=== PATIENT | female | born 1980 | race African-American/Black ===

== ENCOUNTER → 2021-03-17 | Outpatient (CLI) | payer OTHER, SELFPAY | END | disposition home or self-care (01) | LOC: LABSPEC 08:17 | PROVIDERS: PCP Internal Medicine; Referring Provider Physician Assistant; Visit Provider Physician Assistant | DX: L08.9 Local infection of the skin and subcutaneous tissue, unspecified (principal); L02.415 Cutaneous abscess of right lower limb | CPT/HCPCS: 87070; 87205 ==

== ENCOUNTER 2021-11-23 14:05 | Emergency (ER) | payer OTHER, SELFPAY ==
[2021-11-23 14:06] VITALS: BP 139/89; PULSE 90; RESP 16; TEMP 36.2; O2SAT 98; BMI 25.1
--- NOTE | 2021-11-23 14:25 | EX.ED.UPPERE ---
HPI History of Present Illness HPI Narrative: Patient presents with a laceration to her left hand that occurred today. Patient states she was cutting an avocado and went to stab the pit. Patient states she missed and the knife went into her left hand. Patient describes her pain as dull. Patient states nothing makes it better nothing makes it worse. Patient admits to some tingling in her left index and middle fingers. Patient denies any weakness. Patient is unsure of her last tetanus. Patient denies any other injuries. Chief Complaint: Laceration Informant: patient Onset/Context/Timing Onset: Today Context: Sudden Onset Timing: Continuous Quality of Pain: Dull Location: Left hand Worsened by: Nothing Relieved by: Nothing Associated Symptoms Associated Symptoms: Positive for Parasthesia; Negative for Weakness and Loss of Funtion Narrative Tetanus Immunization: Unknown [facility] Medical History ADHD (attention deficit hyperactivity disorder) Medical History no medical history Home Medications apremilast [Otezla] 30 mg PO DAILY 11/23/21 [History Last Taken Unknown] dextroamphetamine-amphetamine 20 mg PO DAILY 11/23/21 [History Last Taken Unknown] ergocalciferol (vitamin D2) [Vitamin D2] 1,250 mcg PO QWEEK 11/23/21 [History Last Taken Unknown] Allergy/AdvReac Type Severity Reaction Status Date / Time No Known Allergies Allergy Verified 11/23/21 14:07 Family History no significant family his Surgical History no surgical history no surgical history Social History Smoking Status: Former smoker ROS ROS ED Constitutional Constitutional ED: Denies chills or fever(s) Eyes Eyes: Denies blurry vision or change in vision ENT ENT ED: Denies rhinorrhea or sore throat Cardiovascular Cardiovascular: Denies chest pain or palpitations Respiratory/Chest Respiratory/Chest: Denies cough or dyspnea Gastrointestinal Gastrointestinal: Denies nausea or vomiting Genitourinary Genitourinary ED: Denies dysuria or hematuria Musculoskeletal Musculoskeletal: Denies back pain or neck pain Integumentary Denies abscess or rash Neurologic Neurologic: Denies headache(s) or weakness Allergic/Immunologic Allergic/Immunologic ED: Denies mouth swelling or urticaria EXAM Physical Exam Const Vital Signs: 11/23/21 14:06 Temperature 97.2 F L Temperature Source Temporal Pulse Rate 90 Respiratory Rate 16 Blood Pressure 139/89 H Blood Pressure Mean 105 Pulse Ox 98 Oxygen Delivery Method Room Air Positive well nourished and well developed General Appearance ED: well developed and NAD HEENT Reports moist mucous membranes Neck full ROM and supple Neuro oriented x3, CN's II-XII intact bilaterally, moves all extremities, no focal motor deficits and no sensory deficits noted Sensorium / Orientation: alert Psych mental status grossly normal Skin Skin Narrative: There is a 1.5 cm full-thickness linear laceration on the palmar aspect of the left hand between the second and third metacarpal heads. There is also a 7 mm laceration on the dorsal aspect of the left hand in the webspace between the second and third digits. There is moderate gapping of the wound margins on the palmar aspect. There is no gapping of the wound margins in the webspace. There is mild bleeding. There are no foreign bodies visualized. Strength is 5/5 in flexion extension of the MP, PIP, and DIP joints of the left index and middle fingers. Sensation was intact to light touch in all digits. Capillary refill was less than 2 seconds in all digits. Radial pulses are equal bilaterally. MDM MDM MDM Narrative Medical decision making narrative: X-rays of the left hand were obtained. There are 3 views. On my interpretation, there is no acute fracture. There is no dislocation. There is no soft tissue swelling. Radiologist also interpreted the x-rays and agrees. Patient was given a tetanus booster. The wound on the palmar aspect of the left hand was cleaned and irrigated with copious amounts of normal saline. The wound was anesthetized with 1% plain lidocaine locally. The wound was closed with 3 simple interrupted #4-0 nylon sutures under sterile technique. Patient tolerated the procedure well. Bacitracin dressing was applied. The wound on the dorsal aspect of the left hand in the webspace was left open. There is minimal gapping of the wound margins of this wound. Patient was instructed to follow-up with her primary care physician in 7 days for wound recheck and suture removal. Patient understood and was agreeable with the plan. All questions were answered. Discharge Plan Triage Chief Complaint: Laceration ED Provider: Bhavin Arreola Dx/Rx/DC Orders Clinical Impression: Laceration of left hand Instructions: ED Laceration, Hand: All Closures Prescriptions: No Action dextroamphetamine-amphetamine 20 mg tablet 20 mg PO DAILY RF: 0 ergocalciferol (vitamin D2) [Vitamin D2] 1,250 mcg (50,000 unit) capsule 1,250 mcg PO QWEEK RF: 0 Otezla 30 mg tablet 30 mg PO DAILY RF: 0 Primary Care Provider: Sofía Hale Referrals: Sofía Hale MD [Primary Care Provider] - 7 Days for suture removal Disposition Disposition: Home, Self Care
--- NOTE | 2021-11-23 14:30 | RAD_ITS ---
STUDY: X-RAY - LEFT HAND REASON FOR EXAM: Female, 41 years old. Laceration between the second and third metacarpals. TECHNIQUE: 3 view(s) of the hand. COMPARISON: None. FINDINGS: Normal radiocarpal articulation. Normal distal radioulnar joint. Normal visualized carpal bones. Normal carpal articulations Normal carpometacarpal articulation of the thumb. Normal second through fifth carpometacarpal joints. Normal metacarpi. Normal metacarpophalangeal joint of the thumb. Normal interphalangeal joint of the thumb. Normal proximal and distal phalanges of the thumb. Normal metacarpophalangeal joints of the second through fifth fingers. Normal proximal and distal interphalangeal joints of the second through fifth fingers. Normal phalanges of the second through fifth fingers. The soft tissue structures are unremarkable. RAD/Hand Min 3 Views IMPRESSION: Normal x-ray examination of the hand. Electronically Signed: Jd Garcia MD at 14:50 EDT ,
[2021-11-23] MEDS: Diphth,Pertuss(Acell),Tet Vac 0.5 ML Vial IM (14:40)
[2021-11-23] MEDS: Lidocaine 1% (20 ml mdv) 20 ML Vial INFILT (14:44)
[2021-11-23 15:48] VITALS: RESP 18
== END 2021-11-23 15:49 | disposition home or self-care (01) ==
PROVIDERS: Emergency Provider Emergency Medicine; PCP Internal Medicine; Visit Provider Emergency Medicine
DX: S61.412A Laceration without foreign body of left hand, initial encounter (principal); Z87.891 Personal history of nicotine dependence; W26.0XXA Contact with knife, initial encounter; F90.9 Attention-deficit hyperactivity disorder, unspecified type; Z79.899 Other long term (current) drug therapy; Z23 Encounter for immunization
CPT/HCPCS: 12001; 73130; 90471; 90715; 99283

== ENCOUNTER → 2024-12-03 | Outpatient (CLI) | payer OTHER, SELFPAY ==
--- NOTE | 2024-12-03 10:55 | BI_ITS ---
EXAM: SCRN MAMM (CAD)W/GABRIEL BILAT DATE: 12/03/2024 CLINICAL HISTORY: F, Age 44 y/o , SCREENING Aunt with breast cancer. BREAST CANCER RISK ASSESSMENT: Not assessed. TECHNIQUE: Bilateral screening digital breast tomosynthesis with 2D and 3D images. Computer aided detection. COMPARISON: Baseline study. FINDINGS: TISSUE DENSITY: The breast tissue is heterogenously dense, which may obscure small masses. Bilateral Breast Mammographic Findings: No significant masses, calcifications or other abnormalities are identified. BI/SCRN MAMM (CAD)W/GABRIEL BILAT IMPRESSION: OVERALL FINAL ASSESSMENT: BIRADS 1 NEGATIVE RECOMMENDATION: Routine annual follow-up in 1 Year A letter with findings and recommendations will be mailed to the patient. Reading Location: [id number]
== END | disposition home or self-care (01) ==
LOC: OPBI 10:53
PROVIDERS: PCP Internal Medicine; Referring Provider Obstetrics & Gynecology Gynecology; Visit Provider Obstetrics & Gynecology Gynecology
DX: Z12.31 Encounter for screening mammogram for malignant neoplasm of breast (principal)
CPT/HCPCS: 77063; 77067